=== PATIENT | female | born 1970 ===

== ENCOUNTER 2017-10-08 18:46 | Emergency (ER) | payer MEDICAID ==
[2017-10-08 19:12] VITALS: O2SAT 100
--- NOTE | 2017-10-08 22:09 | C.PDOC ---
Time Seen by Provider: 10/08/17 21:11 Chief Complaint (Nursing): Chest Pain Past Medical History Vital Signs: Last Vital Signs Temp 98.2 F 10/08/17 19:08 Pulse 127 H 10/08/17 19:08 Resp 22 10/08/17 19:08 BP 128/88 10/08/17 19:08 Pulse Ox 100 10/08/17 19:08 - Medical History PMH: Seizures (Sunday last episode) - Social History Hx Alcohol Use: No Hx Substance Use: No - Immunization History Hx Tetanus Toxoid Vaccination: Yes Hx Influenza Vaccination: Yes Hx Pneumococcal Vaccination: No ED Course And Treatment O2 Sat by Pulse Oximetry: 100 Disposition - Disposition
--- NOTE | 2017-10-08 22:17 | C.PDOC ---
History Of Present Illness 47 year old female presents to ED with complaints of musculoskeletal pain since earlier today and has no past medical history. Patient notes experiencing chest pain earlier, and persistent left arm, shoulder, and back pain since. Notes onset of pain status post lifting heavy box. Notes only surgery as a in 1983. Denies taking medications and any drug allergies. PCP: Abbie Edge Time Seen by Provider: 10/08/17 21:11 Chief Complaint (Nursing): Chest Pain History Per: Patient History/Exam Limitations: no limitations Onset/Duration Of Symptoms: Hrs (since earlier today) Past Medical History Reviewed: Historical Data, Nursing Documentation, Vital Signs Vital Signs: Last Vital Signs Temp 97.8 F 10/08/17 22:42 Pulse 83 10/08/17 22:42 Resp 18 10/08/17 22:42 BP 112/78 10/08/17 22:54 Pulse Ox 100 10/08/17 23:33 - Medical History PMH: No Chronic Diseases, Seizures (Sunday last episode) Surgical History: (in 1983) - Social History Hx Alcohol Use: No Hx Substance Use: No - Immunization History Hx Tetanus Toxoid Vaccination: Yes Hx Influenza Vaccination: Yes Hx Pneumococcal Vaccination: No Review Of Systems Except As Marked, All Systems Reviewed And Found Negative. Cardiovascular: Positive for: Chest Pain Musculoskeletal: Positive for: Shoulder Pain (left sided), Arm Pain (left sided) , Back Pain (left sided) Physical Exam - Physical Exam Appears: No Acute Distress Skin: Normal Color, Warm, Dry Head: Atraumatic Eye(s): bilateral: Normal Inspection, PERRL, EOMI Neck: Normal Chest: Symmetrical, No Tenderness Cardiovascular: Rhythm Regular Respiratory: Normal Breath Sounds Gastrointestinal/Abdominal: Normal Exam Back: Other (tenderness to left trapezius, left rhomboid, and left latissimus dorsi) Extremity: Normal ROM, Tenderness (trigger point tenderness to left brachialis) , No Swelling Neurological/Psych: Oriented x3, Normal Motor, Normal Sensation ED Course And Treatment O2 Sat by Pulse Oximetry: 100 (RA) Pulse Ox Interpretation: Normal Medical Decision Making Medical Decision Makin Initial orders: * EKG * Toradol 15mg IM * Valium 5mg PO * Re-eval 2329 Upon re-evaluation patient is feeling better and is stable for discharge. Scribe Attestation: Documented by Samantha Ghotra acting as a scribe for Mary Knott MD. Scribe Attestation: All medical record entries made by the Scribe were at my direction and personally dictated by me. I have reviewed the chart and agree that the record accurately reflects my personal performance of the history, physical exam, medical decision making, and the department course for this patient. I have also personally directed, reviewed, and agree with the discharge instructions and disposition. Disposition Counseled Patient/Family Regarding: Diagnosis, Need For Followup - Disposition Referrals: [facility] [place] [Outside] [facility] [Outside] [facility] [Outside] Disposition: HOME/ ROUTINE Disposition Time: 23:32 Additional Instructions: return if symtpoms worsen Prescriptions: Naproxen [Naprosyn] 500 mg PO BID 5 Days #10 tablet Forms: [employer] (Spanish) - Clinical Impression Clinical Impression: Muscle spasm
[2017-10-08 22:43] VITALS: PULSE 83; RESP 18; TEMP 97.8
[2017-10-08 22:55] VITALS: BP 112/78
--- NOTE | 2017-10-09 23:07 | CARD ---
APPROVED REPORT EKG Measurement Heart [id number] <Conclusion> Sinus tachycardia Nonspecific T wave abnormality Abnormal ECG
== END 2017-10-08 23:43 | disposition home or self-care (01) ==
LOC: C.ER 18:46
DX: M62.838 Other muscle spasm (principal)
CPT/HCPCS: 93005; 96372; 99284; J1885

== ENCOUNTER 2019-01-30 17:30 | Emergency (ER) | payer MEDICAID | END 2019-01-30 18:54 | disposition home or self-care (01) | LOC: C.ER 17:30 ==